=== PATIENT | female | born 1965 | race Caucasian/White ===

== ENCOUNTER 2018-02-03 20:17 | Emergency (ER) | payer OTHER ==
[~2018-02-03] VITALS: Ht 170.2 cm; Wt 68.0 kg
[2018-02-03] MEDS ORDERED: Percocet 5-3251 EACH PO (22:18)
== END 2018-02-03 22:39 | disposition home or self-care (01) ==
LOC: ER 20:17
DX: S52.501A Unspecified fracture of the lower end of right radius, initial encounter for closed fracture (principal); W18.30XA Fall on same level, unspecified, initial encounter
CPT/HCPCS: 25605; 73100; 96374; 96375; 99152; 99284; J2405; J3010; J7030